=== PATIENT | female | born 1945 | race Asian ===

== ENCOUNTER 2016-10-22 14:45 | Emergency (ER) | payer OTHER ==
[~2016-10-22] VITALS: Ht 160 cm; Wt 68.5 kg
[2016-10-22 14:52] VITALS: TEMP 36.6; O2SAT 96; Ht 160 cm; Wt 68.5 kg
[2016-10-22] MEDS ORDERED: RIVA1TAB4 PO (15:11)
[2016-10-22] MEDS ORDERED: METF-384 PO (15:11)
[2016-10-22] MEDS ORDERED: ACET325T96 PO (15:11)
[2016-10-22] MEDS ORDERED: MULT-506 PO (15:11)
[2016-10-22] MEDS ORDERED: METO-722 PO (15:11)
[2016-10-22] MEDS ORDERED: METO50TA16 PO (15:11)
[2016-10-22] MEDS ORDERED: NVLG SQ (15:11)
[2016-10-22] MEDS ORDERED: ASCO500T16 PO (15:11)
[2016-10-22] MEDS ORDERED: PRLSR20 PO (15:11)
[2016-10-22] MEDS ORDERED: ALUM-30 PO (15:11)
[2016-10-22] MEDS ORDERED: SODIUM CHLORIDE 0.9% 1000ML 1,000 ML IV STA (15:19)
[2016-10-22] MEDS ORDERED: NovoLIN-R INSULIN PER UNIT CHARGE IV STA ×2 (15:19→16:52)
[2016-10-22] MEDS ORDERED: SODIUM CHLORIDE 0.9% 500ML 500 ML IV STA (15:19)
[2016-10-22] MEDS ORDERED: GLIP2.5T11 PO (15:22)
[2016-10-22] MEDS ORDERED: LEVO75TA5 PO (15:22)
[2016-10-22] MEDS ORDERED: AMLO-110 PO (15:22)
[2016-10-22] MEDS ORDERED: MECL-91 PO (15:22)
[2016-10-22] MEDS ORDERED: ATOR-24 PO (15:22)
[2016-10-22] MEDS ORDERED: FRS/40 PO (15:22)
[2016-10-22] MEDS ORDERED: CLON0.1T12 PO (15:22)
[2016-10-22] MEDS ORDERED: ERGO500037 PO (15:22)
[2016-10-22] MEDS ORDERED: ISR/5 PO (15:22)
[2016-10-22] MEDS ORDERED: INSDGI SC (15:22)
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
[2016-10-22 15:54] LABS: URINE APPEARANCE CLEAR (CLEAR); URINE BILIRUBIN NEG (NEG); URINE COLOR YELLOW; URINE NITRITE NEG (NEG); URINE SPECIFIC GRAVITY 1.015 (1.000-1.030); UROBILINOGEN NEG (NEG)
[2016-10-22 15:56] LABS: MANUAL MICROSCOPIC REQUIRED? NO; REVIEW REQ? NO
[2016-10-22 16:53] LABS: BUN/CREATININE RATIO 12.6 (10-20); CALCIUM 8.5 mg/dl (8.5-10.1); CREATININE 0.86 mg/dl (0.60-1.20); POTASSIUM 4.1 mmol/L (3.5-5.1)
[2016-10-22 17:00] LABS: HEMATOCRIT 37.2 % (37-47); MEAN CELL VOLUME 84.7 fL (80-100); MEAN CORPUSCULAR HEMOGLOBIN 27.3 pg (25-34); MEAN CORPUSCULAR HGB CONC 32.3 g/dl (32-36); PLATELET COUNT 314 K/uL (130-400); RED BLOOD COUNT 4.39 M/uL (4.2-5.4); WHITE BLOOD COUNT 7.42 K/uL (4.8-10.8)
[2016-10-22 17:03] LABS: BETA-HYDROXYBUTYRATE 0.98 mg/dL (0.2-2.81)
[2016-10-22] MEDS ORDERED: AMLODIPINE BESYLATE 5 MG TAB PO ONE (17:15)
[2016-10-22] MEDS ORDERED: CLONIDINE HCL 0.1 MG TAB PO ONE (17:15)
[2016-10-22 18:05] VITALS: BP 149/101; PULSE 90; O2SAT 97
== END 2016-10-22 18:05 | disposition home or self-care (01) ==
LOC: MERGE 14:47 → EDBD 14:47 → C.EDB 14:47
DX: E11.65 Type 2 diabetes mellitus with hyperglycemia (principal); I10 Essential (primary) hypertension; Z91.14 Patient's other noncompliance with medication regimen; Z79.4 Long term (current) use of insulin; Z79.01 Long term (current) use of anticoagulants; Z79.899 Other long term (current) drug therapy